=== PATIENT | female | born 1950 | race Caucasian/White ===

== ENCOUNTER 2018-06-09 11:47 | Inpatient (IN) | payer OTHER ==
[2018-06-09 15:08] LABS: PLATELET COUNT 231 10^3/uL (150-400)
--- NOTE | 2018-06-09 15:33 | EDPHY ---
H & P Stated Complaint: hx bowel esections /abd pain/diarrhea has appt with dr menon in july Time Seen by Provider: 06/09/18 14:00 HPI/ROS: CHIEF COMPLAINT: Acutely worsening chronic abdominal pain HISTORY OF PRESENT ILLNESS: The patient presents to the ED with complaints of acutely worsening chronic abdominal pain. 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 This has been complicated by a postoperative obstruction requiring surgical repair in September of this year. The patient has had chronic pain since that time. The patient has seen her surgeon who has referred her to Gastroenterology. She is scheduled to see Gastroenterology on July 09. The patient presents to the ED today with concerns that her pain is worsening. She also reports symptoms of weight loss. REVIEW OF SYSTEMS: A comprehensive 10 point review of systems is otherwise negative aside from elements mentioned in the history of present illness. Source: Patient Exam Limitations: No limitations - Personal History Current Tetanus Diphtheria and Acellular Pertussis (TDAP): Yes - Medical/Surgical History Hx Asthma: No Hx Chronic Respiratory Disease: No Hx Diabetes: No Hx Cardiac Disease: No Hx Renal Disease: No Hx Cirrhosis: No Hx Alcoholism: No Hx HIV/AIDS: No Hx Splenectomy or Spleen Trauma: No Other PMH: liver cancer/tumors on aorta bowel resection - Social History Smoking Status: Never smoked - Physical Exam Exam: General Appearance: Thin female, tearful Eyes: Pupils equal and round no pallor or injection ENT, Mouth: Mucous membranes moist Respiratory: There are no retractions, lungs are clear to auscultation Cardiovascular: Regular rate and rhythm Gastrointestinal: General abdominal tenderness, surgical incision clean dry and intact, normal bowel sounds Neurological: 5/5 strength all 4 extremities Skin: Warm and dry, no rashes Musculoskeletal: Neck is supple nontender Extremities: symmetrical, full range of motion Psychiatric: Patient is oriented X 3, there is no agitation Constitutional: Initial Vital Signs Temperature (C) 36.4 C 06/09/18 12:00 Heart Rate 83 06/09/18 12:00 Respiratory Rate 17 06/09/18 12:00 Blood Pressure 144/97 H 06/09/18 12:00 O2 Sat (%) 96 06/09/18 12:00 O2 Delivery Mode Room Air Allergies/Adverse Reactions: epinephrine Allergy (Verified 06/09/18 11:57) Home Medications: Medication Instructions Recorded Celecoxib 06/09/18 Glycopyrrolate 06/09/18 LORAZEPAM 06/09/18 Levothyroxine 06/09/18 Lomotil Tab (*) 06/09/18 Oxycodone HCl 06/09/18 Potassium Chloride 06/09/18 Medical Decision Making - Diagnostics Imaging Results: Imaging Impressions Abdomen CT 06/09/18 15:32 Impression: 1. Mild increase in lymphadenopathy Periaortic and peripancreatic regions 2. Persistent moderate diffuse thickening of the colon suggestive of colitis. 3. Mild amount of ascites has developed. 4. Diffuse haziness of the omentum and mesentery possibly representing underlying lymphangitic obstruction. Findings discussed with Leobardo Mims M.D. at 17:33 hour, 06/09/2018. ED Course/Re-evaluation: The patient presents to the ED with several complaints including undiagnosed chronic intermittent severe abdominal pain, early satiety and significant weight loss. The patient has seen her surgeon in [place] who is referred her to Gastroenterology. She is unable to be seen as an outpatient until July by Dr. Darius Menon at [facility]. The patient does have a appointment to see her oncologist in the coming week. The patient was taken for CT scan of the abdomen pelvis which continues to demonstrate nonspecific colonic inflammation and intra-abdominal adenopathy. The remainder of the patient's laboratory studies are unremarkable. Patient had an IV established and received IV morphine and normal saline in the emergency department. She is noted to be hypokalemic. I re-evaluated the patient at 6:00 p.m. and discussed her options. She tells me that she is at her wits end and wants to be admitted for further evaluation. Consultation was made with Dr. Maurizio Mckeon from the hospitalist service who will admit the patient primarily. The Oncology Service has been notified. Differential Diagnosis: Differential diagnosis considered includes worsening intra-abdominal metastatic disease, perforation, obstruction, dehydration, hernia - Data Points Laboratory Results: Laboratory Results 06/09/18 15:00 06/09/18 15:00 06/09/18 06/09/18 15:00 15:00 WBC 5.42 10^3/uL 10^3/uL (3.80-9.50) RBC 3.81 10^6/uL L 10^6/uL (4.18-5.33) Hgb 11.6 g/dL L g/dL (12.6-16.3) Hct 34.5 % L % (38.0-47.0) MCV 90.6 fL fL (81.5-99.8) MCH 30.4 pg pg (27.9-34.1) MCHC 33.6 g/dL g/dL (32.4-36.7) RDW 13.3 % % (11.5-15.2) Plt Count 231 10^3/uL 10^3/uL (150-400) MPV 10.5 fL fL (8.7-11.7) Neut % (Auto) 54.4 % % (39.3-74.2) Lymph % (Auto) 37.1 % % (15.0-45.0) [place] % (Auto) 6.5 % % (4.5-13.0) Eos % (Auto) 1.1 % % (0.6-7.6) Baso % (Auto) 0.7 % % (0.3-1.7) Nucleat RBC Rel Count 0.0 % % (0.0-0.2) Absolute Neuts (auto) 2.95 10^3/uL 10^3/uL (1.70-6.50) Absolute Lymphs (auto) 2.01 10^3/uL 10^3/uL (1.00-3.00) Absolute Monos (auto) 0.35 10^3/uL 10^3/uL (0.30-0.80) Absolute Eos (auto) 0.06 10^3/uL 10^3/uL (0.03-0.40) Absolute Basos (auto) 0.04 10^3/uL 10^3/uL (0.02-0.10) Absolute Nucleated RBC 0.00 10^3/uL 10^3/uL (0-0.01) Immature Gran % 0.2 % % (0.0-1.1) Immature Gran # 0.01 10^3/uL 10^3/uL (0.00-0.10) Sodium 138 mEq/L mEq/L (135-145) Potassium 2.9 mEq/L L mEq/L (3.5-5.2) Chloride 103 mEq/L mEq/L (97-110) Carbon Dioxide 27 mEq/l mEq/l (22-31) Anion Gap 8 mEq/L mEq/L (6-14) BUN 11 mg/dL mg/dL (7-23) Creatinine 0.7 mg/dL mg/dL (0.6-1.0) Estimated GFR > 60 Glucose 102 mg/dL H mg/dL (70-100) Calcium 9.4 mg/dL mg/dL (8.5-10.4) Total Bilirubin 2.3 mg/dL H mg/dL (0.1-1.4) Conjugated Bilirubin 0.4 mg/dL mg/dL (0.0-0.5) Unconjugated Bilirubin 1.9 mg/dL H mg/dL (0.0-1.1) AST 17 IU/L IU/L (14-46) ALT 21 IU/L IU/L (9-52) Alkaline Phosphatase 76 IU/L IU/L (38-126) Total Protein 6.5 g/dL g/dL (6.3-8.2) Albumin 3.8 g/dL g/dL (3.5-5.0) Lipase 40 IU/L IU/L (23-300) Medications Given: Discontinued Medications Morphine Sulfate (Morphine) 4 mg IVP EDNOW ONE Stop: 06/09/18 15:35 Last Admin: 06/09/18 15:38 Dose: 4 mg Departure - Departure Disposition: [facility] Inpatient Acute Clinical Impression: Abdominal pain, Carcinoid tumor, Hypokalemia Condition: Fair
[2018-06-09] MEDS ORDERED: IOPAMIDOL (ISOVUE-300) 100 ML BTL ONE (15:43)
[2018-06-09] MEDS ORDERED: ONDANSETRON 4 MG/2 ML VIAL IVP PRN (19:08)
[2018-06-09] MEDS ORDERED: HYDROmorphONE/DILAUDID 1 MG/ML INJ IVP PRN (19:08)
[2018-06-09] MEDS ORDERED: ONDANSETRON DISINTEGRATING 4 MG TAB PO PRN (19:08)
[2018-06-09] MEDS ORDERED: HYDROCODONE/APAP 5/325 TAB PO PRN (19:08)
[2018-06-09] MEDS ORDERED: ACETAMINOPHEN 325 MG TAB PO PRN (19:08)
[2018-06-09] MEDS ORDERED: PROMETHAZINE HCL 25 MG/ML INJ IVP PRN (19:08)
[2018-06-09] MEDS ORDERED: DIPHENOXYLATE/ATROPINE LOMOTIL 1 TAB PO PRN (19:11)
[2018-06-09] MEDS ORDERED: NS 1,000 ML IV SCH (19:15)
[2018-06-09] MEDS: oxyCODONE IR 5 MG TAB PO PRN ×2 (19:56→21:34)
--- NOTE | 2018-06-09 21:01 | PDGENHP ---
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 She was operated on by Dr. Arriaga at [facility] and she has seen him approximately 8 times since surgery and he has assured her that her symptoms are not related to the surgery and would not be best managed operatively. She has also seen her oncologist, Dr. Kiran and has seen a GI doctor, Dr. Jeffers. She notes that she has had several bad experiences with Dr. Jeffers and that though he had her scheduled for upper endoscopy tomorrow, she ultimately elected to transfer her care to [facility] and has an appt to see Dr. Sanford in July. Unfortunately her sxs have been so severe she did not feel she could wait. She feels full after one or two bites of food, she has had chronic diarrhea which she takes tincture of opium for and which has improved some, she has lost approximately 80 pounds since September. She had a breath test presumably for h. pylori which she states was inconclusive. She is somewhat of a poor historian as she is tangential and her care has been scattered across multiple hospitals including [facility] and [facility] but generally it seems her main complaints are the weight loss, early satiety and abdominal pain. History Information - Allergies/Home Medication List Allergies/Adverse Reactions: No Known Allergies Allergy (Verified 06/09/18 18:30) Home Medications: Acetaminophen [Tylenol 325mg (*)] 325 mg PO Q6HRS PRN 06/09/18 [Last Taken Unknown] Cholecalciferol Vit D3 [Vitamin D3 (*)] 1,000 units PO DAILY 06/09/18 [Last Taken Unknown] Cyanocobalamin [Vitamin B12 (*)] 1,000 mcg PO DAILY 06/09/18 [Last Taken Unknown ] Diphenoxylate HCl/Atrop Sulf [Lomotil Tab (*)] 1 tab PO DAILY PRN 06/09/18 [ Last Taken Unknown] LORazepam [Ativan (*)] 1 mg PO HS 06/09/18 [Last Taken 06/08/18] Levothyroxine [Synthroid 100 mcg (*)] 100 mcg PO DAILY06 06/09/18 [Last Taken ] Opium Tincture 6 mg PO BID 06/09/18 [Last Taken 06/09/18] Potassium Chloride Po [Potassium Chloride 20 mg/15 ml (*)] 40 meq PO DAILY 06/09 [Last Taken 06/08/18] celeCOXIB [Celebrex (*)] 200 mg PO DAILY 06/09/18 [Last Taken Unknown] oxyCODONE IR [Oxycodone Ir (*)] 5 mg PO Q4HRS PRN 06/09/18 [Last Taken Unknown] I have personally reviewed and updated: family history, medical history, social history, surgical history - Past Medical History cancer (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 chronic diarrhea. hypothyroid. chronic pain with continuous opiate use and dependency - Surgical History Reports: cancer surgery (small bowel resection x 2, most recently in September), cholecystectomy, hernia repair (x 3 with mesh placement) Additional surgical history: BSOO - Family History Positive for: non-pertinent - Social History Smoking Status: Never smoked Alcohol Use: None Drug Use: None Additional social history: , son present at bedside Review of Systems Review of Systems: ROS: 10pt was reviewed & negative except for what was stated in HPI & below Physical Exam Physical Exam: Temp Pulse Resp BP Pulse Ox 36.7 C 87 18 146/88 H 97 06/09/18 19:44 06/09/18 19:44 06/09/18 19:44 06/09/18 19:44 06/09/18 19:44 Constitutional: no apparent distress, appears nourished Eyes: PERRL, anicteric sclera Ears, Nose, Mouth, Throat: moist mucous membranes, hearing normal Cardiovascular: regular rate and rhythym, no murmur, rub, or gallop, edema ( trace) Respiratory: no respiratory distress, no rales or rhonchi Gastrointestinal: normoactive bowel sounds, tenderness, No guarding, No rebound Genitourinary: no bladder tenderness Skin: warm, normal color Musculoskeletal: full muscle strength Neurologic: AAOx3 Psychiatric: interacting appropriately, not anxious, not encephalopathic Lab Data & Imaging Review 06/09/18 15:00 06/09/18 15:00 WBC 5.42 10^3/uL (3.80-9.50) 06/09/18 15:00 RBC 3.81 10^6/uL (4.18-5.33) L 06/09/18 15:00 Hgb 11.6 g/dL (12.6-16.3) L 06/09/18 15:00 Hct 34.5 % (38.0-47.0) L 06/09/18 15:00 MCV 90.6 fL (81.5-99.8) 06/09/18 15:00 MCH 30.4 pg (27.9-34.1) 06/09/18 15:00 MCHC 33.6 g/dL (32.4-36.7) 06/09/18 15:00 RDW 13.3 % (11.5-15.2) 06/09/18 15:00 Plt Count 231 10^3/uL (150-400) 06/09/18 15:00 MPV 10.5 fL (8.7-11.7) 06/09/18 15:00 Neut % (Auto) 54.4 % (39.3-74.2) 06/09/18 15:00 Lymph % (Auto) 37.1 % (15.0-45.0) 06/09/18 15:00 [place] % (Auto) 6.5 % (4.5-13.0) 06/09/18 15:00 Eos % (Auto) 1.1 % (0.6-7.6) 06/09/18 15:00 Baso % (Auto) 0.7 % (0.3-1.7) 06/09/18 15:00 Nucleat RBC Rel Count 0.0 % (0.0-0.2) 06/09/18 15:00 Absolute Neuts (auto) 2.95 10^3/uL (1.70-6.50) 06/09/18 15:00 Absolute Lymphs (auto) 2.01 10^3/uL (1.00-3.00) 06/09/18 15:00 Absolute Monos (auto) 0.35 10^3/uL (0.30-0.80) 06/09/18 15:00 Absolute Eos (auto) 0.06 10^3/uL (0.03-0.40) 06/09/18 15:00 Absolute Basos (auto) 0.04 10^3/uL (0.02-0.10) 06/09/18 15:00 Absolute Nucleated RBC 0.00 10^3/uL (0-0.01) 06/09/18 15:00 Immature Gran % 0.2 % (0.0-1.1) 06/09/18 15:00 Immature Gran # 0.01 10^3/uL (0.00-0.10) 06/09/18 15:00 Sodium 138 mEq/L (135-145) 06/09/18 15:00 Potassium 2.9 mEq/L (3.5-5.2) L 06/09/18 15:00 Chloride 103 mEq/L (97-110) 06/09/18 15:00 Carbon Dioxide 27 mEq/l (22-31) 06/09/18 15:00 Anion Gap 8 mEq/L (6-14) 06/09/18 15:00 BUN 11 mg/dL (7-23) 06/09/18 15:00 Creatinine 0.7 mg/dL (0.6-1.0) 06/09/18 15:00 Estimated GFR > 60 06/09/18 15:00 Glucose 102 mg/dL (70-100) H 06/09/18 15:00 Calcium 9.4 mg/dL (8.5-10.4) 06/09/18 15:00 Total Bilirubin 2.3 mg/dL (0.1-1.4) H 06/09/18 15:00 Conjugated Bilirubin 0.4 mg/dL (0.0-0.5) 06/09/18 15:00 Unconjugated Bilirubin 1.9 mg/dL (0.0-1.1) H 06/09/18 15:00 AST 17 IU/L (14-46) 06/09/18 15:00 ALT 21 IU/L (9-52) 06/09/18 15:00 Alkaline Phosphatase 76 IU/L (38-126) 06/09/18 15:00 Total Protein 6.5 g/dL (6.3-8.2) 06/09/18 15:00 Albumin 3.8 g/dL (3.5-5.0) 06/09/18 15:00 Lipase 40 IU/L (23-300) 06/09/18 15:00 Visualized and Interpreted imaging results: Yes Interpretation: abd CT: periaortic/peripancreatic LAD, moderate diffuse thickening of colon, mild ascites, diffuse haziness omentum and mesentery ? lymphangitic obstruction Assessment & Plan Assessment: Abdominal pain (Acute) Carcinoid tumor (Acute) Hypokalemia (Acute) 67 yo F with NET of the small intestine with recent SBO requiring SB resection presenting with persistent abd pain, early satiety and weight loss # abd pain/early satiety/weight loss: this has been going on since September and has been failing outpatient management--apparently not a surgical issue per her surgeon, has been followed by oncology and GI as well with plans for EGD that was to be performed tomorrow however patient now in hospital. Oncology and GI consulted, per GI keep patient NPO after MN for EGD in am (discussed with Dr. Gaston who will pass on consult to Dr. Brantley). Dr. Tineo also consulted. No clear explanation of sxs on CT unless this all represents progression of disease. # NET: of small bowel with mets to intra-abdominal LNs, oncology consulted as above # chronic diarrhea: in the setting of 2 prior SB resections, patient notes this has seemed to have improved more recently # chronic pain: only on low dose oxycodone as an OP, will continue and additional pain meds as needed # protein calorie malnutrition: BMI of 27 however patient with unintentional 80 pound weight loss since September, dietary to be consulted # IP status Patient new to my care. Old records reviewed and summarized as above. Care plan reviewed with ER doctor and Dr. Gaston as above. Further hx obtained from patients son present at bedside.
[2018-06-09] MEDS: LORazepam 1 MG TAB PO SCH (21:34)
[2018-06-09] MEDS: OPIUM TINCTURE 6 MG/0.6 ML UDSYR PO SCH (21:35)
[2018-06-10] MEDS: OPIUM TINCTURE 6 MG/0.6 ML UDSYR PO SCH ×3 (00:16→21:48)
[2018-06-10] MEDS: oxyCODONE IR 5 MG TAB PO PRN ×4 (00:23→21:55)
[2018-06-10] MEDS: LEVOTHYROXINE 100 MCG TAB PO SCH (04:48)
[2018-06-10 05:06] LABS: PLATELET COUNT 202 10^3/uL (150-400)
[2018-06-10] MEDS: POTASSIUM Cl (KCl) 100 ML IV SCH ×4 (06:52→14:10)
[2018-06-10] MEDS: CYANO/VITAMIN B12 1000 MCG TAB PO SCH (08:27)
[2018-06-10] MEDS: CHOLECALCIFEROL VIT D3 1,000 UNITS TAB PO SCH (08:27)
[2018-06-10] MEDS ORDERED: POTASSIUM CL 20 MEQ/15 ML UDCUP PO SCH (09:00)
--- NOTE | 2018-06-10 09:03 | PDMN ---
Medical Necessity Medical necessity: MCG M05 Abd Pain, Undiagnosed: 67 yo w/ abd pain and unintentional 80lb weight loss. Ongoing since SBO resect in September 2017, failing outpt management. GI and oncology consults ordered. Pt is hypokalemic K 2.6. IVF and K replacement started. EGD planned by GI. NPO for now. Meets IP MCG criteria for abd pain w/ sig weight loss and electrolyte imbalance, cont cardiac monitoring. Hx ca (NET small intestine w/ mets para aortic LN), recurrent SBO, chronic diarrhea, chronic pain, hypothyroid. Recent SBO resect in September 2017.
[2018-06-10] MEDS: NS W/ 20 KCl/L 1,000 ML IV SCH ×2 (11:54→21:08)
--- NOTE | 2018-06-10 14:08 | GCON ---
INPATIENT ONCOLOGY CONSULTATION THE OUTPATIENT ONCOLOGIST IS DR. MELLO REED. DATE OF CONSULTATION: 06/10/2018 REFERRING PHYSICIAN: Leobardo Mims MD REASON FOR CONSULTATION: Carcinoid tumor. 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 She was first diagnosed in 2005. She had the primary tumor resected and has bee n on a number of systemic therapies in the past, including Afinitor, Sandostatin, and some clinical t rials. She said the Sandostatin caused foul-smelling stools and crampy abdominal pain, and she did n ot take it for very long. She has not had any systemic therapy since 2012. In September 2017, she had a resection of an area of small bowel due to adhesions with Dr. Kiran Jang in [place]. Since that time, s he has been bothered by frequent stools and abdominal cramping. She has lost approximately 60 pounds . [address] saw Dr. Jeffers of Gastroenterology in [place], who did a colonoscopy, which was unrevealing. He recommended that she take the Creon, which she says makes her abdominal cramping worse. She ultimately came into the emergency department due to inability to tolerate these symptoms, though it sounds that it has been fairly chronic. The CT did not show evidence of a bowel obstruction. So me of the lymph nodes in the abdomen are somewhat larger, now up to 3.7 cm. She denies flushing or r wong. PAST MEDICAL HISTORY: Otherwise unremarkable. CURRENT MEDICATIONS: Include [place], Lomotil, IV Dilaudid as needed, Synthroid, tincture of opium, ox ycodone, vitamin B12. ALLERGIES: She has no known drug allergies. FAMILY HISTORY: Noncontributory. SOCIAL HISTORY: She is a nonsmoker and a nondrinker. Lives with her . REVIEW OF SYSTEMS: Aside from the pertinent positives in the HPI, a 14-point review of systems was n egative. EXAMINATION: VITAL SIGNS: Temperature is 36.8, blood pressure 115/72, heart rate 66, oxygen saturat ion 94% on room air. GENERAL: She was a mildly cachectic, chronically ill woman, in no acute distres s. HEENT: Sclerae anicteric. Oropharynx is clear. NECK: Supple, without lymphadenopathy. LUNGS: Clear to auscultation bilaterally. CARDIAC: Regular rate and rhythm. No murmurs, gallops, or rub s. ABDOMEN: Quiet bowel sounds. Was nontender, nondistended, without rebound or guarding. EXTREMI TIES: Without edema. SKIN: No petechiae, purpura, or rash. NEUROLOGIC: She was alert and oriente d x3. Strength and sensation were grossly intact. LABORATORY DATA: White count 6.05, hemoglobin 10.6, platelets of 202. Sodium 138, potassium 2.9, ch loride 103, bicarb 27, BUN 11, creatinine 0.7, calcium 9.4, total bilirubin 2.3, indirect bilirubin 1 .9. AST, ALT, alkaline phosphatase, total protein, and albumin were all normal. IMPRESSION: This is a 67-year-old woman with a longstanding history of metastatic carcinoid tumor, n ow with crampy abdominal pain and diarrhea. She does not appear to have a bowel obstruction. She co uld have carcinoid syndrome, but she is not describing any flushing. There could be other gastrointe stinal processes, such as bacterial overgrowth or a malabsorption syndrome. I recommended that we get a 24-hour urine for 5-HIAA. If this is markedly elevated, that would sugge st carcinoid syndrome, maybe at least part of the cause, and we could consider another trial of Jackson statin or possibly another systemic therapy for carcinoid tumors. I also think she should be evaluat ed by Gastroenterology as she feels that her doctor in [place] has not effectively investigated this problem and would like a second opinion. I did recommend that she try taking the Creon to see if th at may help. We will continue to follow the patient with you closely while she is in the hospital. /[id number]/MODL
--- NOTE | 2018-06-10 15:50 | HOSPPROG ---
Hospitalist Progress Note Assessment/Plan: 67 yo F with metastatic carcinoid of the small intestine with SBO 09/2017 requiring small bowel resection presented with frequent loose stools, abdominal cramping associated with weight loss that hasn't improved over months. 1. Acute on chronic diarrhea: Broad differential. Symptoms not totally consistent with carcinoid but will want to rule out. Also concern for malabsorption, SIBO with recent resection. - GI PCR, stool O&P, stool fat and elastase, celiac panel, fecal calprotectin , tissue transglutaminase IgA - 5-HIAA. If elevated, consider somatostatin analog - Oncology ([place]) and gastroenterology ([place]) consulted - GI considering EGD +/- EUS tomorrow 2. Anemia: Not bleeding - Check iron studies 3. Hypokalemia, hypomagnesemia: Related to poor PO - Place on protocol and monitor closely 4. Metastatic carcinoid of small bowel: Oncology consulted. Previously on sandostatin and some clinical trials. 5. Chronic pain: Continue home oxycodone. 6. Protein calorie malnutrition, weight loss: Consult dietary. VTE ppx: SCDs Diet: NPO at midnight Dispo: Remain inpatient for further evaluation of above, possible EGD. Unsafe to dc due to risk of dehydration. Subjective: Had 16 loose stools today. [place] film over them and stools float. No blood. Mild abdominal pain. No flushing/sweating. Objective: Vital Signs Temp Pulse Resp BP Pulse Ox 36.8 C 74 12 127/74 H 93 06/10/18 11:50 06/10/18 11:50 06/10/18 11:50 06/10/18 11:50 06/10/18 11:50 Laboratory Results 06/10/18 04:45 06/10/18 04:45 06/09/18 06/10/18 06/11/18 05:59 05:59 05:59 Intake Total 461 Balance 461 - Physical Exam Constitutional: no apparent distress, not in pain, other (thin) Eyes: PERRL, anicteric sclera, EOMI Ears, Nose, Mouth, Throat: moist mucous membranes, hearing normal, ears appear normal, no oral mucosal ulcers Cardiovascular: regular rate and rhythym, no murmur, rub, or gallop Respiratory: no respiratory distress, no rales or rhonchi, clear to auscultation Gastrointestinal: normoactive bowel sounds, no palpable masses, tenderness ( mild diffuse), No guarding, No distension Genitourinary: no bladder fullness, no bladder tenderness, no renal bruits Skin: no rashes or abrasions, no fluctuance, no induration Musculoskeletal: full muscle strength, no muscle tenderness, normal joint ROM Neurologic: AAOx3, sensation intact bilaterally Psychiatric: interacting appropriately, not anxious, not encephalopathic, thought process linear ICD10 Worksheet Patient Problems: Problems Problem Status Onset Abdominal pain Acute Carcinoid tumor Acute Hypokalemia Acute
[2018-06-10] MEDS ORDERED: PROTOCOL POTASSIUM 1 DOSE MISC PRN (15:54)
[2018-06-10] MEDS ORDERED: PROTOCOL MAGNESIUM 1 DOSE IV PRN (15:54)
[2018-06-10] MEDS ORDERED: POTASSIUM CL 10 MEQ TAB PO ONE (19:57)
[2018-06-10] MEDS: LORazepam 1 MG TAB PO SCH (21:08)
--- NOTE | 2018-06-10 21:32 | ASMTCMCOM ---
CM Note CM Note Notes: Chart reviewed for discharge planning purposes. 70 year old female admitted via ED for complaints of nausea and vomiting. Per CT she had a dilated common duct and will be seen by gasteroenterology. She has had a SBR for carcinoid tumor in the past. She has pain and is scheduled to have spinal surgery next week. CM to follow for needs, Plan: TBD Date Signed: 06/10/2018 02:01 PM Electronically Signed By:Yana Leavitt RN
--- NOTE | 2018-06-10 22:11 | GCON ---
DATE OF CONSULTATION: 06/10/2018 CHIEF COMPLAINT: Abdominal pain. HPI: I am asked to see the patient in consultation by Dr. Mckeon for chief complaint of abdominal pain. She is a complex 67-year-old who has seen a attendant self service store in [place], also followed by an oncologist and surgeon for history of neuroendocrine tumor she states was a carcinoid removed in involving the mesentery and small bowel. She then had hernias and required mesh placement in and then in September had an issue with a small bowel obstruction, saw her surgical oncologist who mary gabe that surgically, but apparently there was no tumor. Since then, she is having issues with abdomi nal pain and significant diarrhea, was followed by her attendant self service store in [place] who did a colon oscopy a month ago, reportedly was normal. However, we do not have any of these records or surgical path. She was to have an upper endoscopy this week, however, elected not to follow up with that alix roenterologist, was to see Dr. Sanford next month but because of worsening pain presented to the emergen cy room. She states she is no longer having nausea and vomiting but does feel early satiety and has been having some weight loss. There has been no melena. Unclear if there is any blood in her stools , as she describes more of an orange stool. No clear melena. No hematemesis. ALLERGIES: No known drug allergies. HOME MEDICATIONS: Include chronic narcotic use, vitamin B12, Lomotil, lorazepam, Synthroid, Celebrex , tincture of opium. PAST MEDICAL HISTORY: Neuroendocrine tumor of the small bowel, apparently with mets, that patient de scribes as a carcinoid, although I do not have the path available. She has had recent small bowel ob struction requiring surgery in September, has hypothyroidism, chronic pain requiring opiate use, weight l oss. FAMILY HISTORY: No family history for carcinoid. SOCIAL HISTORY: Never smoked. REVIEW OF SYSTEMS: I performed a complete review of systems which is negative except for pertinent p ositives and negatives noted above in the HPI. PHYSICAL EXAM: VITAL SIGNS: Afebrile at 36.8, BP 115/72, pulse 66. GENERAL: She is alert and orie nted. EYES: No scleral icterus. HEENT: No oral lesions. CARDIOVASCULAR: Regular rhythm. CHEST: Clear to auscultation. ABDOMEN: Positive bowel sounds. Soft. She does have a midline scar. JULIA ROLOGIC: Grossly nonfocal. SKIN: No obvious rashes. LABORATORY DATA: Potassium is significantly low at 2.6, BUN and creatinine are 8 and 0.7. LFTs are normal. Lipase is normal at 40. White count normal at 6.0. H and H are 10.6 and 31.5. Platelets a re 202. CT scan of the abdomen shows previous cholecystectomy with mild dilated ducts. There may be a narrowing in the distal common duct at the level of the pancreatic head. No clear masses; however , there is increased number of lymph nodes suspected around the pancreatic head. There is thickening of the colon wall that is described as persistent. Mild amount of ascites. ASSESSMENT: Patient with chronic abdominal pain with recent exacerbation. She has early satiety, si gnificant diarrhea with weight loss, overall a very complex patient. We are hindered in evaluation a s we do not have any, at this point, old records, including recent surgery and colonoscopy, as her ca re has been fragmented. Also complicated history of carcinoid. Given her diarrhea, I would be thony rned about carcinoid syndrome. If she has metastasis, also consider potentially diarrhea from short gut, however, did not sound like she had significant amount of small bowel removed. With her early s atiety, abdominal pain, and Celebrex use, could consider peptic ulcer disease. There is also some co ncern on the CT scan about maybe narrowing at the head of the pancreas but no clear mass. PLAN: 1. Acutely, would recommend we correct her electrolytes. 2. Agree with sending 5-HIAA to assess for carcinoid syndrome. 3. Can offer upper endoscopy once her potassium is corrected. She would require any endoscopic proc edure to be done with propofol given her chronic Ativan and narcotic use and therefore will need her potassium to be improved before we could do anesthesia. However, also could give consideration to en doscopic ultrasound instead of upper endoscopy to also evaluate the head of the pancreas at the same time. I can discuss with Dr. Gaston. If this is not going to be available, then would recommend MRI w ith and without contrast to better assess her pancreas. Will follow. Thanks for this consult. /[id number]/MODL
[2018-06-11] MEDS: LEVOTHYROXINE 100 MCG TAB PO SCH (06:25)
[2018-06-11] MEDS ORDERED: POTASSIUM CL 10 MEQ TAB PO ONE ×2 (07:44→19:45)
[2018-06-11] MEDS ORDERED: MAGNESIUM SULF 2 GM/WATER 50 ML IV ONE ×2 (07:50→08:04)
[2018-06-11] MEDS: POTASSIUM Cl (KCl) 100 ML IV SCH ×3 (09:14→11:56)
[2018-06-11] MEDS ORDERED: LIDOCAINE 2% 5 ML SDV ONE (13:23)
[2018-06-11] MEDS ORDERED: PROPOFOL 200 MG/20 ML VIAL ONE (13:23)
--- NOTE | 2018-06-11 13:28 | PDANEPAE ---
ANE History of Present Illness abdominal pain, weight loss, hx of carcinoid metastatic, hx of SBO ANE Past Medical History - Cardiovascular History Hx Hypertension: No Hx Arrhythmias: No Hx Chest Pain: No Hx Coronary Artery / Peripheral Vascular Disease: No Hx CHF / Valvular Disease: No Hx Palpitations: No - Pulmonary History Hx COPD: No Hx Asthma/Reactive Airway Disease: No Hx Recent Upper Respiratory Infection: No Hx Oxygen in Use at Home: No Hx Sleep Apnea: No Sleep Apnea Screening Result - Last Documented: Negative - Endocrine History Hx Diabetes: No Hypothyroid: Yes Hyperthyroid: No Obesity: no - Renal History Hx Renal Disorders: No - Liver History Hx Hepatic Disorders: No - Neurological & Psychiatric Hx Hx Neurological and Psychiatric Disorders: No - Cancer History Hx Cancer: No - Congenital Disorder History Hx Congenital Disorders: No - GI History Hx Gastrointestinal Disorders: Yes Gastrointestinal History Comment: see HPI - Chronic Pain History Chronic Pain: Yes ANE Review of Systems Review of systems is: negative Review of Systems: - Exercise capacity METS (RN): 2 METS ANE Patient History - Allergies Allergies/Adverse Reactions: No Known Allergies Allergy (Verified 06/09/18 18:30) - Home Medications Home medications: home medication list seen and reviewed Home Medications: Acetaminophen [Tylenol 325mg (*)] 325 mg PO Q6HRS PRN 06/09/18 [Last Taken Unknown] Cholecalciferol Vit D3 [Vitamin D3 (*)] 1,000 units PO DAILY 06/09/18 [Last Taken Unknown] Cyanocobalamin [Vitamin B12 (*)] 1,000 mcg PO DAILY 06/09/18 [Last Taken Unknown ] Diphenoxylate HCl/Atrop Sulf [Lomotil Tab (*)] 1 tab PO DAILY PRN 06/09/18 [ Last Taken Unknown] LORazepam [Ativan (*)] 1 mg PO HS 06/09/18 [Last Taken 06/08/18] Levothyroxine [Synthroid 100 mcg (*)] 100 mcg PO DAILY06 06/09/18 [Last Taken ] Opium Tincture 6 mg PO BID 06/09/18 [Last Taken 06/09/18] Potassium Chloride Po [Potassium Chloride 20 mg/15 ml (*)] 40 meq PO DAILY 06/09 [Last Taken 06/08/18] celeCOXIB [Celebrex (*)] 200 mg PO DAILY 06/09/18 [Last Taken Unknown] oxyCODONE IR [Oxycodone Ir (*)] 5 mg PO Q4HRS PRN 06/09/18 [Last Taken Unknown] - NPO status NPO Status: no food or drink >8 hours NPO Since - Liquids (Date): 06/10/18 NPO Since - Liquids (Time): 23:55 NPO Since - Solids (Date): 06/10/18 NPO Since - Solids (Time): 23:55 - Anes Hx Anes Hx: no prior problems - Smoking Hx Smoking Status: Never smoked - Alcohol Use Alcohol Use: None - Family Anes Hx Family Anes Hx: none ANE Labs/Vital Signs - Labs Result Diagrams: 06/10/18 04:45 06/11/18 05:09 - Vital Signs Blood Pressure: 127/86 Heart Rate: 72 Respiratory Rate: 17 O2 Sat (%): 97 Height: 162.56 cm Weight: 54.431 kg ANE Physical Exam - Airway Neck exam: FROM Mallampati Score: Class 2 Mouth exam: normal dental/mouth exam - Pulmonary Pulmonary: no respiratory distress, clear to auscultation - Cardiovascular Cardiovascular: regular rate and rhythym, no murmur, rub, or gallop - ASA Status ASA Status: III ANE Anesthesia Plan Anesthesia Plan: GA with mask Total IV Anesthesia: Yes
--- NOTE | 2018-06-11 13:31 | SOAPPROG ---
SOAP Progress Note Assessment/Plan: Assessment: 1. Carcinoid, mesenteric metastases 2. Chronic diarrhea and cramping 3. Anemia, iron deficiency + chronic inflammation 4. Hypothyroid (TSH 30) Plan: - appreciate GI input - consider octreotide / sandostatin if 5-hIAA elevated - consider IV iron as outpatient - increase syntrhoid dose if T3 and T4 levels come back low d/w dr torres 25 min spent w/ pt and in coordination of care. 06/11/18 13:29 Subjective: feels about the same. Objective: exam unchanged Vital Signs Temp Pulse Resp BP Pulse Ox 36.8 C 72 17 127/86 H 97 06/11/18 12:47 06/11/18 13:28 06/11/18 13:28 06/11/18 13:28 06/11/18 13:28 Microbiology 06/10/18 16:55 Gastrointestinal Tract Panel (PCR) - Final Stool No Organism Detected By Pcr Laboratory Results 06/10/18 04:45 06/11/18 05:09 06/10/18 06/11/18 06/12/18 05:59 05:59 05:59 Intake Total 461 1956 Balance 461 195 ICD10 Worksheet Patient Problems: Problems Problem Status Onset Abdominal pain Acute Carcinoid tumor Acute Hypokalemia Acute
[2018-06-11] MEDS ORDERED: NALOXONE HCL 0.4 MG/ML INJ IVP PRN (13:43)
--- NOTE | 2018-06-11 13:44 | POSTANESTH ---
Post Anesthetic Evaluation Cardiovascular Status: Normal, Stable Respiratory Status: Normal, Stable Level of Consciousness/Mental Status: Can Participate in Eval, Moderately Sleepy Pain Control: Adequate, Prn Tx Ordered Nausea/Vomiting Control: Adequate, Prn Tx Ordered Complications Possibly Related to Anesthesia: None Noted
--- NOTE | 2018-06-11 13:49 | GIREPORT ---
[facility] - Endoscopy Department Patient Name: Isa Rodriguez Procedure Date: 06/11/2018 1:24 PM Patient Type: Inpatient Attending MD/ ER Physician: Essence Brantley MD Procedure: Upper GI endoscopy Indications: Epigastric abdominal pain, Early satiety, Weight loss Providers: Essence Brantley MD Medicines: Monitored Anesthesia Care Complications: No immediate complications. Description of Procedure: After obtaining informed consent, the endoscope was passed under direct vision. Throughout the procedure, the patient's blood pressure, pulse, and oxygen saturations were monitored continuously. The Endoscope was intro duced through the mouth, and advanced to the second part of duodenum. [facility] er GI endoscopy was accomplished without difficulty. The patient tolerated th e procedure well. Findings: The esophagus was normal. Moderately erythematous mucosa without bleeding was found in the gastri c antrum. Biopsies were taken with a cold forceps for histology. Estimate d blood loss was minimal. The examined duodenum was normal. Biopsies for histology were taken wit h a cold forceps for evaluation of celiac disease. Estimated blood loss was minimal. Estimated Blood Loss: Estimated blood loss was minimal. Post Op Diagnosis: - Normal esophagus. - Erythematous mucosa in the antrum. Biopsied. - Normal examined duodenum. Biopsied. Recommendation: - Await pathology results. - Advance diet as tolerated. - [facility] patient [facility]. - Perform magnetic resonance imaging (MRI) with and w/o gadolinium to evaluate pancreas. - Thank you for allowing me to participate in the care of your patient. Attending Participation: I personally performed the entire procedure. Essence Brantley MD Essence Brantley MD 06/11/2018 1:48:42 PM This report has been signed electronicallyEssence Brantley MD Number of Addenda: 0 Note Initiated On: 06/11/2018 1:24 PM [email or web address]
[2018-06-11] MEDS ORDERED: GADOBUTROL 10 ML VIAL IVP ONE (15:10)
--- NOTE | 2018-06-11 16:00 | HOSPPROG ---
Hospitalist Progress Note Assessment/Plan: 67 yo F with metastatic carcinoid of the small intestine with SBO 09/2017 requiring small bowel resection presented with frequent loose stools, abdominal cramping associated with weight loss that hasn't improved over months. 1. Acute on chronic diarrhea: Broad differential. Symptoms not totally consistent with carcinoid but will want to rule out. Also concern for malabsorption, SIBO with recent resection. - GI PCR negative - stool O&P, stool fat and elastase, celiac panel, fecal calprotectin, tissue transglutaminase IgA pending - 5-HIAA pending. If elevated, consider somatostatin analog - EGD today with mild erythema in stomach otherwise unremarkable, follow up biopsies - Abdomen MRI today suggestive of colitis; normal pancreas and biliary system - Oncology (Rivka) and gastroenterology (Fercho) consulted 2. Acute on chronic pain: Abdomen, back. - Continue IV morphine for breakthrough and home oxycodone PRN 3. Anemia: Not bleeding. Mild iron deficiency on labs. Monitor daily. 4. Hypothyroidism: TSH very elevated, free T4 normal. This is unlikely to be related to #1 (should cause constipation). I suspect she isn't absorbing her thyroid replacement due to GI issues. - Switch levothyroxine from PO to dose-equivalent IV 5. Hypokalemia, hypomagnesemia: Related to poor PO, slowly getting better - Place on protocol and monitor closely 6. Metastatic carcinoid of small bowel: Oncology consulted. Previously on sandostatin and some clinical trials. 7. Protein calorie malnutrition, weight loss: Consult dietary. VTE ppx: SCDs Diet: low fat diet after procedure Dispo: Remain inpatient for further evaluation of above. Unsafe to dc as not tolerating PO, uncontrolled pain, at risk for significant dehydration. Subjective: Lots of pain this AM. Morphine didn't help but thinks IV infiltrated. Has had roughly 20 BMs today, no blood. No fevers. Objective: Vital Signs Temp Pulse Resp BP Pulse Ox 36.5 C 72 17 125/83 H 97 06/11/18 14:12 06/11/18 13:30 06/11/18 13:30 06/11/18 14:07 06/11/18 14:12 Microbiology 06/10/18 16:55 Gastrointestinal Tract Panel (PCR) - Final Stool No Organism Detected By Pcr Laboratory Results 06/10/18 04:45 06/11/18 05:09 06/10/18 06/11/18 06/12/18 05:59 05:59 05:59 Intake Total 461 1956 400 Balance 461 1955 400 - Physical Exam Constitutional: no apparent distress, not in pain, other (thin) Eyes: PERRL, anicteric sclera, EOMI Ears, Nose, Mouth, Throat: moist mucous membranes, hearing normal, ears appear normal, no oral mucosal ulcers Cardiovascular: regular rate and rhythym, no murmur, rub, or gallop, No edema Respiratory: no respiratory distress, no rales or rhonchi, clear to auscultation Gastrointestinal: normoactive bowel sounds, no palpable masses, tenderness Genitourinary: no bladder fullness, no bladder tenderness, no renal bruits Skin: no rashes or abrasions, no fluctuance, no induration Musculoskeletal: full muscle strength, no muscle tenderness, normal joint ROM Neurologic: AAOx3, sensation intact bilaterally Psychiatric: interacting appropriately, not anxious, not encephalopathic, thought process linear ICD10 Worksheet Patient Problems: Problems Problem Status Onset Abdominal pain Acute Carcinoid tumor Acute Hypokalemia Acute
[2018-06-11] MEDS: CHOLECALCIFEROL VIT D3 1,000 UNITS TAB PO SCH (16:46)
[2018-06-11] MEDS: CYANO/VITAMIN B12 1000 MCG TAB PO SCH (16:46)
[2018-06-11] MEDS: PANTOPRAZOLE SODIUM 40 MG TAB PO SCH (16:47)
[2018-06-11] MEDS: OPIUM TINCTURE 6 MG/0.6 ML UDSYR PO SCH ×2 (16:47→17:45)
[2018-06-11] MEDS: LORazepam 1 MG TAB PO SCH (20:18)
[2018-06-11] MEDS: NS W/ 20 KCl/L 1,000 ML IV SCH (20:22)
[2018-06-12] MEDS: oxyCODONE IR 5 MG TAB PO PRN ×3 (02:26→11:48)
[2018-06-12] MEDS: NS W/ 20 KCl/L 1,000 ML IV SCH (05:50)
[2018-06-12] MEDS ORDERED: MAGNESIUM SULF 1 GM/DEXTROSE 100 ML IV ONE (07:40)
[2018-06-12] MEDS: PANTOPRAZOLE SODIUM 40 MG TAB PO SCH (08:06)
[2018-06-12] MEDS: CHOLECALCIFEROL VIT D3 1,000 UNITS TAB PO SCH (08:06)
[2018-06-12] MEDS: CYANO/VITAMIN B12 1000 MCG TAB PO SCH (08:06)
[2018-06-12] MEDS: POTASSIUM Cl (KCl) 100 ML IV SCH ×3 (09:02→11:54)
[2018-06-12] MEDS ORDERED: LEVOTHYROXINE 100 MCG/5 ML SYR IVP SCH (10:00)
--- NOTE | 2018-06-12 10:39 | SOAPPROG ---
SOAP Progress Note Assessment/Plan: Assessment: Diarrhea likely multifactorial with h/o carcinoid tumor, aslo recent SB resection at risk for SIBO. She did have negative breath test recently. Consider IBS-D. I think it is worth empiric treatment with Xifaxan, patient is agreeable. Plan: Begin treatment with Xifaxan 550 TID for 14 days Await w/o for carcinoid syndrome and biopsies from EGD Pt has follow up with Dr. Sanford already scheduled OK to discharge Will sign off 06/12/18 10:35 Subjective: CC diarrhea Still with diarrhea able to take POs Objective: Vital Signs Temp Pulse Resp BP Pulse Ox 36.4 C 72 16 117/75 96 06/12/18 07:22 06/12/18 07:22 06/12/18 07:22 06/12/18 07:22 06/12/18 07:22 Laboratory Results 06/12/18 05:25 06/12/18 05:25 06/11/18 06/12/18 06/13/18 05:59 05:59 05:59 Intake Total 1955 1999 Balance 1955 1999 Physical Exam - Physical Exam General Appearance: no apparent distress Respiratory: lungs clear Cardiac/Chest: regular rate, rhythm Abdomen: non-tender, soft ICD10 Worksheet Patient Problems: Problems Problem Status Onset Abdominal pain Acute Carcinoid tumor Acute Hypokalemia Acute
[2018-06-12] MEDS: RIFAXIMIN 550 MG TAB PO SCH ×2 (11:56→15:42)
--- NOTE | 2018-06-12 13:23 | SOAPPROG ---
[facility] Progress Note Assessment/Plan: Assessment: 1. Carcinoid, mesenteric metastases 2. Chronic diarrhea and cramping 3. Anemia, iron deficiency + chronic inflammation 4. Hypothyroid (TSH 30) Upper endoscopy and abd MRI unrevealing. Most likely causes of chronic diarrhea and crampy abd pain include carcinoid syndrome, bacterial overgrowth, pancreatic insufficiency, or other unspecified colitis. Pt does not want to take Creon or have a trial of octreotide unless the urine 5-HIAA is very elevated (which would point to carcinoid syndrome as the likely cause.) Plan: - transition to PO pain meds - encourage use of Creon - f/u with Dr. Mcmillan as outpatient to discuss octreotride or other Rx for carcinoid d/w morena hall and shyann. 35 min spent w/ pt and in coordination of care. Subjective: still having some pain but overall feeing better. Objective: exam unchanged Vital Signs Temp Pulse Resp BP Pulse Ox 36.6 C 65 16 132/82 H 94 06/12/18 11:11 06/12/18 11:11 06/12/18 11:11 06/12/18 11:11 06/12/18 11:11 Laboratory Results 06/12/18 05:25 06/12/18 05:25 06/11/18 06/12/18 06/13/18 05:59 05:59 05:59 Intake Total 1955 1999 Balance 1955 1999 ICD10 Worksheet Patient Problems: Problems Problem Status Onset Abdominal pain Acute Carcinoid tumor Acute Hypokalemia Acute
--- NOTE | 2018-06-12 16:20 | PDDCSUM ---
Discharge Summary Discharge Summary: Date of Admission: 06/09/2018 Date of Discharge: 06/12/2018 Consultants: gastroenterology Procedures/Studies: 1. Abdominal CT 2. EGD 3. MRCP Discharge Diagnoses: 1. Acute on chronic diarrhea 2. Metastatic carcinoid of small bowel 3. H/o recent small bowel obstruction 2/2 resection 4. Protein calorie malnutrition, weight loss 5. Subclinical hypothyroidism 6. Mild iron deficiency anemia 7. Hypokalemia, hypomagnesemia 8. Chronic pain with opioid dependency Brief Hospital Course: 67 yo F with metastatic carcinoid of the small intestine with small bowel obstruction 09/2017 requiring small bowel resection presented with frequent loose stools, abdominal cramping associated with weight loss that hasn't improved over months. She denies any flushing or symptoms consistent with carcinoid except for her diarrhea. Abdominal CT showed persistent diffuse colitis. GI was consulted and performed an EGD which was relatively unremarkable and biopsies were negative for H pylori. MRCP showed no significant pancreatic or biliary ductal dilation. GI PCR, stool O&P, cyclospora , and celiac testing were negative. LFTs unremarkable except for mild unconjugated hyperbilirubinemia. Fecal fat, fecal elastase were pending. Overall , our suspicion at time of discharge was for SIBO vs carcinoid. She has previously been treated with somatostatin analogs and declined to try these again. She was amenable to trying rifaximin to treat possible SIBO. I sent a 14 day prescription to her pharmacy. Interestingly, after discharge her urine 5-HIAA returned abnormal (62, upper limit of normal is <8). Her symptoms are probably related to her carcinoid. She needs to follow up with her dairy cattle farm manager to discuss ongoing treatment for this as she declined therapy specifically for this here. Also of note, her TSH was very elevated with a normal free T4. I suspect she is not absorbing her thyroid replacement very well with her GI symptoms. She did get a few doses of IV synthroid while here. This needs to be followed as outpatient. Medications: Please refer to EMR for complete list. Following prescriptions were sent to pharmacy: 1. Hydrocodone-tylenol 5/325mg q6h PRN, #16, 0 refills 2. Rifaximin 550mg TID #42, 0 refills 3. Discontinued oxycodone Follow Up Plan: 1. Has appointment with Darius Sanford next month for ongoing management of GI issues. Recommend initiating somatostatin analog 2. Follow up pending stool studies (elastase, fecal fat) 3. Repeat thyroid function tests in 2-4 weeks Physical Exam: Vitals reviewed, afebrile. Alert and oriented, rrr without m/r/g , clear lungs, abdomen mildly ttp without rebound, no rashes or gaurding.
[2018-06-12 16:35] VITALS: BP 132/72
--- NOTE | 2018-06-12 17:32 | ASMTCMCOM ---
CM Note CM Note Notes: Patient medically ready for discharge. Met with patient and brother, patient requesting referral to outpatient Palliative Care - MD agrees. Referral sent to [facility], sundared Brandi. No other needs identified at this time. Plan: Home with [facility] Date Signed: 06/12/2018 05:31 PM Electronically Signed By:Lisa Kapoor RN
[2018-06-12] MEDS ORDERED: OPIUM TINCTURE 6 MG/0.6 ML UDSYR PO SCH (20:00)
--- NOTE | 2018-06-13 09:50 | PDGENHP ---
History & Physical Chief Complaint: nausea early satiety and diarrhea History of Present Illness: h/o carcinoid Relevant Physical Exam: cv [id number] nl. chest cta. abd + bs Cardiorespiratory Assessment: [id number]
[2018-06-13 12:42] LABS: CYCL RESULT See Comments
== END 2018-06-12 17:29 | disposition home or self-care (01) | DRG 392 ==
LOC: OBSVTOIN 19:07 → F1N 19:49
PROVIDERS: ADMIT Internal Medicine; ATTEND Internal Medicine
DX: K52.9 Noninfective gastroenteritis and colitis, unspecified (principal); E46 Unspecified protein-calorie malnutrition; F11.20 Opioid dependence, uncomplicated; G89.29 Other chronic pain; D50.9 Iron deficiency anemia, unspecified; E02 Subclinical iodine-deficiency hypothyroidism; E87.6 Hypokalemia; E83.42 Hypomagnesemia; Z68.27 Body mass index [BMI] 27.0-27.9, adult
CPT/HCPCS: 82710-90; 83497-90; 83516-90; 84481-90; 87207-90; 96374; 97161-GP; 97165-GO; A9585; G8978-GP-CI; G8979-GP-CI; G8980-GP-CI; G8987-GO-CI; G8988-GO-CI; G8989-GO-CI; J1170; J2270; J2405; J2704; J3475; J3480; Q9967